=== PATIENT | female | born 1960 | race Two or more races ===

== ENCOUNTER 2024-03-14 06:45 | Emergency (ER) | payer OTHER ==
[~2024-03-14] VITALS: Ht 160 cm; Wt 63.5 kg
[2024-03-14] MEDS ORDERED: CEFTRIAXONE SODIUM 1,000 MG VIAL IM STA (08:33)
[2024-03-14] MEDS ORDERED: DEXAMETHASONE SODIUM PHOSPHATE 4 MG/ML VIAL IM STA (08:33)
[2024-03-14] MEDS ORDERED: GENTAMICIN SULFATE 0.15 MG/DR DROPS 5ML OP STA (08:35)
[2024-03-14] MEDS ORDERED: GUAIFENESIN 200 MG/10 ML BLIST.PACK PO STA (08:35)
== END 2024-03-14 08:57 | disposition home or self-care (01) ==
LOC: ER 06:46
DX: H10.9 Unspecified conjunctivitis (principal); H11.433 Conjunctival hyperemia, bilateral; J06.9 Acute upper respiratory infection, unspecified